=== PATIENT | female | born 1995 | race Caucasian/White ===

== ENCOUNTER 2017-05-14 17:45 | Emergency (ER) | payer OTHER ==
[~2017-05-14] VITALS: Ht 157.5 cm; Wt 47.6 kg
[~2017-05-14 17:45] MED LIST: AMOXICILLIN500 M1 PO; AMOXICILLIN875 MG PO; BACTRIM DS TAB1 EACH PO; BIRTH CONTROL; DIFLUCAN150 MG PO; DOXYCYCLINE 10100 M1 PO; FLONASE 0.05%50 MCG NASAL; HYDROCODON-ACE1 EAC7 PO; HYDROCODONE-AP1 EAC6 PO; IBUPROFEN 600600 M1 PO; LORTAB 5-500 T1 EAC1 PO; MACROBID 100 M100 M1 PO; MONONESSA1 EACH; MONONESSA1 EACH PO; MUCINEX600 MG PO; NOHOMEMEDICATIONS; NORCO 5-325 TA1 EACH PO; ONDANSETRON HCL4 M2 PO; PENICILLIN V P500 MG PO; PENICILLIN VK500 MG PO; PREDNISONE 10 M10 M1 PO; PREDNISONE 20 M20 M1 PO; PROTONIX40 MG PO; ROBAXIN500 MG PO; ROBITUSSIN DM118 ML PO; TRAMADOL 50 MG50 MG PO; VEETIDS 500500 MG PO; ZOFRAN ODT4 MG PO; ZOFRAN4 MG PO; ZPAK PO; ZYRTEC; ZYRTEC10 MG PO
[2017-05-14] MEDS ORDERED: ADDERALL 10 MG10 MG PO (17:54)
[2017-05-14 18:08] LABS: URINE BILIRUBIN NEGATIVE (Negative); URINE BLOOD NEGATIVE (Negative); URINE CLARITY CLEAR; URINE COLOR YELLOW; URINE GLUCOSE-RANDOM NEGATIVE (Negative); URINE KETONES TRACE (Negative); URINE LEUKOCYTES NEGATIVE (Negative); URINE NITRITE NEGATIVE (Negative); URINE PROTEIN NEGATIVE (Negative); URINE SPECIFIC GRAVITY 1.015 (1.005-1.030); URINE UROBILINOGEN 0.2 E.U./dl (0.2-1.0)
[2017-05-14 18:20] LABS: AMP/METHAMP POSITIVE (Negative); BARBITURATES Negative (Negative); BENZODIAZEPINES Negative (Negative); COCAINE Negative (Negative); METHADONE Negative (Negative); OPIATES Negative (Negative); PCP Negative (Negative); THC POSITIVE (Negative)
[2017-05-14 18:25] LABS: ABSOLUTE BASOPHILS 0.1 thou/uL (0.0-0.2); ABSOLUTE EOSINOPHILS 0.1 thou/uL (0.0-0.7); ABSOLUTE LYMPHOCYTES 1.8 thou/uL (0.8-5.3); ABSOLUTE MONOCYTES 0.5 thou/uL (0.0-1.2); ABSOLUTE NEUTROPHILS 9.6 thou/uL (1.6-8.1); BASOPHILS 0.9 %; EOSINOPHILS 0.7 %; HEMATOCRIT 39.4 % (37.0-47.0); HEMOGLOBIN 13.3 gm/dL (12.0-15.0); MCH 29.7 pg (26.0-34.0); MCHC 33.9 g/dL (28.0-37.0); MCV 87.7 fL (80.0-100.0); MONOCYTES 3.8 %; MPV 7.6 fl. (7.2-11.1); NUCLEATED RBCS 0 /100WBC; PLATELET COUNT* 275 thou/uL (150-400); POLYS 79.6 %; RBC 4.49 mil/uL (4.20-5.00); RDW-CV 12.7 % (10.5-14.5)
[2017-05-14 18:41] LABS: CALCIUM 9.5 mg/dL (8.5-10.1); CREATININE 0.8 mg/dL (0.6-1.3); POTASSIUM 3.2 mmol/L (3.5-5.1)
[2017-05-14 18:51] LABS: ALBUMIN 4.2 g/dL (3.4-5.0); TOTAL BILIRUBIN 0.5 mg/dL (<0.1-1.0); TOTAL PROTEIN 7.6 g/dL (6.4-8.2)
[2017-05-14] MEDS ORDERED: KEFLEX500 M1 PO (19:06)
[2017-05-14] MEDS ORDERED: PRENATAL PO (19:06)
[2017-05-14] MEDS ORDERED: PROAIR HFA8.5 GM INH (19:06)
[2017-05-14 19:20] VITALS: BP 131/70
--- NOTE | 2017-05-15 14:39 | EKG ---
[place] [address] ELECTROCARDIOGRAM REPORT Name: CHARANJIT JAIME [id number] Admission: 05/14/17 Attend Phys: Discharge: 05/14/17 Date of : [birth year] Report #: [id number] THIS REPORT FOR: //name// [facility] ED Test Date: 2017-05-14 Test Time: 17:54:21 Pat Name: CHARANJIT JAIME Department: Room: Gender: F Car Supplier: Amie KERNS : 1995 Requested By: Yue Bradshaw Order Number: [id number] Campos MD: Reggie Graff Measurements Intervals [place] Rate: 117 P: 83 ID: [id number] QRS: 78 QRSD: 80 T: 42 QT: 314 QTc: 438 Interpretive Statements Sinus tachycardia No previous ECG available for comparison Electronically Signed On 05-15-2017 14:39:03 [employer] by Reggie Graff [email or web address] <ELECTRONICALLY SIGNED> By: Reggie Graff MD, [facility] 05/15/17 1439 1754 1754 Reggie Graff MD, FACC /EPI
== END 2017-05-14 19:21 | disposition home or self-care (01) ==
LOC: M.ERS 17:45
PROVIDERS: Physician Assistant
DX: O99.519 Diseases of the respiratory system complicating pregnancy, unspecified trimester (principal); O99.330 Smoking (tobacco) complicating pregnancy, unspecified trimester; Z3A.00 Weeks of gestation of pregnancy not specified; J20.9 Acute bronchitis, unspecified; F90.9 Attention-deficit hyperactivity disorder, unspecified type; F17.210 Nicotine dependence, cigarettes, uncomplicated

== ENCOUNTER 2017-06-19 16:02 | Emergency (ER) | payer OTHER ==
[~2017-06-19] VITALS: Ht 162.6 cm; Wt 44.9 kg
[~2017-06-19 16:02] MED LIST changes: +ADDERALL 10 MG10 MG PO; +KEFLEX500 M1 PO; +PRENATAL PO; +PROAIR HFA8.5 GM INH
[2017-06-19 16:27] LABS: URINE BILIRUBIN NEGATIVE (Negative); URINE BLOOD NEGATIVE (Negative); URINE CLARITY CLEAR; URINE COLOR YELLOW; URINE GLUCOSE-RANDOM NEGATIVE (Negative); URINE KETONES NEGATIVE (Negative); URINE LEUKOCYTES-REFLEX NEGATIVE (Negative); URINE NITRITE-REFLEX NEGATIVE (Negative); URINE PROTEIN NEGATIVE (Negative); URINE SPECIFIC GRAVITY >= 1.030 (1.005-1.030); URINE UROBILINOGEN 0.2 E.U./dl (0.2-1.0)
[2017-06-19 16:36] LABS: ABSOLUTE BASOPHILS 0.1 thou/uL (0.0-0.2); ABSOLUTE EOSINOPHILS 0.1 thou/uL (0.0-0.7); ABSOLUTE LYMPHOCYTES 1.8 thou/uL (0.8-5.3); ABSOLUTE MONOCYTES 0.4 thou/uL (0.0-1.2); ABSOLUTE NEUTROPHILS 3.9 thou/uL (1.6-8.1); EOSINOPHILS 1.6 %; HEMATOCRIT 35.4 % (37.0-47.0); HEMOGLOBIN 12.1 gm/dL (12.0-15.0); LYMPHOCYTES 29.4 %; MCH 30.4 pg (26.0-34.0); MCHC 34.2 g/dL (28.0-37.0); MCV 88.9 fL (80.0-100.0); MONOCYTES 6.1 %; MPV 7.7 fl. (7.2-11.1); NUCLEATED RBCS 0 /100WBC; PLATELET COUNT* 253 thou/uL (150-400); POLYS 61.9 %; RBC 3.98 mil/uL (4.20-5.00); RDW-CV 12.9 % (10.5-14.5); WBC 6.3 thou/uL (4.0-11.0)
[2017-06-19 16:47] LABS: CALCIUM 8.7 mg/dL (8.5-10.1); CREATININE 0.9 mg/dL (0.6-1.3); POTASSIUM 3.6 mmol/L (3.5-5.1)
[2017-06-19 16:51] LABS: ALBUMIN 3.9 g/dL (3.4-5.0); TOTAL BILIRUBIN 0.4 mg/dL (<0.1-1.0); TOTAL PROTEIN 6.9 g/dL (6.4-8.2)
[2017-06-19 17:12] VITALS: BP 106/74
[2017-06-19] MEDS ORDERED: PRILOSEC 20 MG20 MG PO (19:16)
== END 2017-06-19 17:13 | disposition home or self-care (01) ==
LOC: M.ERS 16:02
PROVIDERS: Physician Assistant
DX: R10.11 Right upper quadrant pain (principal); R06.00 Dyspnea, unspecified; F90.9 Attention-deficit hyperactivity disorder, unspecified type; F17.210 Nicotine dependence, cigarettes, uncomplicated

== ENCOUNTER 2020-09-28 18:44 | Emergency (ER) | payer OTHER ==
[~2020-09-28] VITALS: Ht 160 cm; Wt 47.6 kg
[~2020-09-28 18:44] MED LIST changes: +PRILOSEC 20 MG20 MG PO
[2020-09-28] MEDS ORDERED: XYZAL5 MG PO (19:34)
[2020-09-28] MEDS ORDERED: MEDROLDOSEPACK PO (21:46)
[2020-09-28 22:23] VITALS: BP 125/78
== END 2020-09-28 22:24 | disposition home or self-care (01) ==
LOC: M.ERS 18:44
DX: J06.9 Acute upper respiratory infection, unspecified (principal); F17.210 Nicotine dependence, cigarettes, uncomplicated; Z20.822 Contact with and (suspected) exposure to COVID-19; Z79.2 Long term (current) use of antibiotics